=== PATIENT | female | born 1985 | race Caucasian/White ===

== ENCOUNTER 2021-11-21 12:54 | Outpatient (CLI) | payer BC | END 2021-11-21 12:55 | disposition home or self-care (01) | LOC: BICMAMMO 12:54 | PROVIDERS: ATTEND Family Medicine | DX: N63.14 Unspecified lump in the right breast, lower inner quadrant (principal); N63.32 Unspecified lump in axillary tail of the left breast | CPT/HCPCS: 77066; G0279 ==

== ENCOUNTER 2022-06-06 15:11 | Outpatient (CLI) | payer BC | END 2022-06-06 15:12 | disposition home or self-care (01) | LOC: BICULT 15:11 | PROVIDERS: ATTEND Family Medicine | DX: N63.20 Unspecified lump in the left breast, unspecified quadrant (principal) ==

== ENCOUNTER 2022-06-18 11:10 | Outpatient (CLI) | payer BC | END 2022-06-18 11:11 | disposition home or self-care (01) | LOC: MRI 11:10 | PROVIDERS: ATTEND Internal Medicine | DX: M54.16 Radiculopathy, lumbar region (principal); M25.50 Pain in unspecified joint; M51.27 Other intervertebral disc displacement, lumbosacral region; K60.2 Anal fissure, unspecified | CPT/HCPCS: 72148 ==

== ENCOUNTER 2022-11-27 08:28 | Outpatient (CLI) | payer BC | END 2022-11-27 08:29 | disposition home or self-care (01) | LOC: BICMAMMO 08:28 | PROVIDERS: ATTEND Internal Medicine | DX: N63.21 Unspecified lump in the left breast, upper outer quadrant (principal) | CPT/HCPCS: 77066; G0279 ==

== ENCOUNTER 2023-11-13 09:50 | Outpatient (CLI) | payer BC | END 2023-11-13 09:51 | disposition home or self-care (01) | LOC: BICMAMMO 09:50 | PROVIDERS: ATTEND Internal Medicine | DX: R92.8 Other abnormal and inconclusive findings on diagnostic imaging of breast (principal); N63.21 Unspecified lump in the left breast, upper outer quadrant | CPT/HCPCS: 77066; G0279 ==

== ENCOUNTER 2025-09-15 07:59 | Outpatient (CLI) | payer BC | END 2025-09-15 08:00 | disposition home or self-care (01) | LOC: BICMAMMO 07:59 | PROVIDERS: ATTEND Internal Medicine | DX: Z12.31 Encounter for screening mammogram for malignant neoplasm of breast (principal); Z80.3 Family history of malignant neoplasm of breast | CPT/HCPCS: 77063; 77067 ==